=== PATIENT | male | born 1985 | race Caucasian/White ===

== ENCOUNTER 2017-10-19 10:10 | Emergency (ER) | payer SELFPAY ==
[2017-10-19] MEDS ORDERED: cefTRIAXone 1,000 MG in Lidocaine 1% 4 ML IM ONE (10:37)
[2017-10-19] MEDS ORDERED: Ketorolac 60 MG/2 ML SDV IM ONE (10:37)
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
== END 2017-10-19 11:30 | disposition home or self-care (01) ==
LOC: MW.ED 10:10
DX: L03.115 Cellulitis of right lower limb (principal); L24.1 Irritant contact dermatitis due to oils and greases; F17.210 Nicotine dependence, cigarettes, uncomplicated; Z88.8 Allergy status to other drugs, medicaments and biological substances
CPT/HCPCS: 96372; 99283; J0696; J1885; J2001